=== PATIENT | male | born 1935 | race Caucasian/White ===

== ENCOUNTER 2020-10-19 09:38 | Observation (INO) | payer MEDICARE, OTHER ==
[2020-10-19 10:38] LABS: #Monocytes 0.8 thou/uL (0.11-0.59); #Neutrophils 12.3 thou/uL (1.40-6.50); %Basophils 0.1 % (0.0-1.0); %Eosinophils 0.1 % (0.0-10.0); %Lymphocytes 6.9 % (21.0-51.0); %Monocytes 5.9 % (0.0-10.0); %Neutrophils 86.9 % (42.0-75.0); Hemoglobin 11.7 g/dL (14.0-18.0); Mean Corpuscular HGB CONC 32.4 g/dL (32.0-36.0); Mean Corpuscular Hemoglobin 31.3 pg (27.0-31.0); Mean Corpuscular Volume 96.8 fL (78.0-98.0); Platelet Count 458 thou/uL (130-400); RBC Distribution Width 11.7 % (11.5-14.5); Red Blood Cell (RBC) Count 3.73 mill/uL (4.70-6.10); White Blood Cell (WBC) Count 14.1 thou/uL (4.8-10.8)
[2020-10-19 11:03] LABS: ALT (SGPT) 69 U/L (8-55); AST (SGOT) 43 U/L (5-34); Albumin 2.8 g/dL (3.4-4.8); Alkaline Phosphatase 58 U/L (40-110); Anion Gap 15 mmol/L (10-20); BUN (Urea Nitrogen) 10 mg/dL (8.4-25.7); Bilirubin, Total 0.5 mg/dL (0.2-1.2); Calc. Creatinine Clearance 0 mL/min (70-130); Carbon Dioxide 23 mmol/L (23-31); Chloride 100 mmol/L (98-107); Globulin 3.2 g/dL (2.4-3.5); Glucose 118 mg/dL (83-110); Potassium 4.1 mmol/L (3.5-5.1); Sodium 134 mmol/L (136-145)
[2020-10-19] MEDS ORDERED: Piperacillin/Tazobactam 4.5 GM VIAL ONE (11:29)
[2020-10-19 15:28] LABS: SARS-CoV-2 NAA Rapid Test Not Detected (NotDetected)
[2020-10-19] MEDS ORDERED: Lidocaine 1% w/Epinephrine 1:100K 20 ML VIAL ONE (16:56)
[2020-10-19] MEDS ORDERED: Lidocaine 2% Jelly 5 ML TUBE ONE (16:56)
[2020-10-19] MEDS ORDERED: Bupivacaine PF 0.5% 30 ML VIAL ONE (16:56)
[2020-10-19] MEDS ORDERED: cefOXitin Sodium/Dextrose 2 GM/50 ML BAG ONE (17:32)
[2020-10-19] MEDS ORDERED: Fentanyl 100 MCG/2 ML VIAL ONE ×2 (17:56→19:03)
[2020-10-19] MEDS ORDERED: Dexamethasone 20 MG/5 ML VIAL ONE (18:13)
[2020-10-19] MEDS ORDERED: PROPOFOL 200 MG/20 ML VIAL ONE (18:13)
[2020-10-19] MEDS ORDERED: Lidocaine 1% PF 5 ML VIAL ONE (18:13)
[2020-10-19] MEDS ORDERED: Ondansetron PF 4 MG/2 ML Vial ONE (18:13)
[2020-10-19] MEDS ORDERED: Dextrose 50% Abboject 50 ML SYRINGE SLOW IVP PRN (18:47)
[2020-10-19] MEDS ORDERED: Dextrose 5% in Water 1,000 ML IV PRN (18:47)
[2020-10-19] MEDS ORDERED: Ondansetron PF 4 MG/2 ML Vial IVP PRN (18:47)
[2020-10-19] MEDS: traMADol HCl 50 MG TAB PO PRN (20:24)
[2020-10-19] MEDS: Acetaminophen 325 MG TAB PO SCH (20:25)
[2020-10-19] MEDS: Piperacillin/Tazobactam 3.375 GM in Sodium Chloride 0.9% 100 ML IVPB SCH (20:26)
[2020-10-19 20:37] VITALS: BMI 22.9
[2020-10-20] MEDS: traMADol HCl 50 MG TAB PO SCH ×4 (01:01→17:28)
[2020-10-20] MEDS: Piperacillin/Tazobactam 3.375 GM in Sodium Chloride 0.9% 100 ML IVPB SCH ×2 (01:01→08:50)
[2020-10-20] MEDS: Acetaminophen 325 MG TAB PO SCH ×4 (01:02→20:32)
[2020-10-20 04:34] LABS: Bilirubin Negative (Negative); Blood, Urine Negative (Negative); Clarity Clear (Clear); Glucose, Urine (Dipstick) Normal (Negative); Ketone, Urine Negative (Negative); Leukocyte Negative Leu/uL (Negative); Nitrite Negative (Negative); Protein, Urine (Dipstick) Negative (Neg-Trace); Specific Gravity, Urine 1.015 (1.002-1.036); Urobilinogen Normal mg/dL (Less than 2)
[2020-10-20] MEDS: traMADol HCl 50 MG TAB PO PRN (12:49)
[2020-10-20] MEDS: metroNIDAZOLE 500 MG TAB PO SCH ×2 (14:26→20:32)
[2020-10-20] MEDS: Ciprofloxacin 500 MG TAB PO SCH (20:32)
[2020-10-20] MEDS ORDERED: Lisinopril 20 MG TAB PO SCH (21:00)
[2020-10-21] MEDS: traMADol HCl 50 MG TAB PO SCH ×3 (01:06→12:50)
[2020-10-21] MEDS: Acetaminophen 325 MG TAB PO SCH ×3 (01:06→15:35)
[2020-10-21] MEDS: Ciprofloxacin 500 MG TAB PO SCH (06:08)
[2020-10-21] MEDS: metroNIDAZOLE 500 MG TAB PO SCH ×2 (08:11→15:35)
[2020-10-21 16:13] VITALS: BP 122/59; TEMP 97.6
[2020-10-22] MEDS ORDERED: Saccharomyces boulardii 250 MG CAP PO SCH (09:00)
== END 2020-10-21 16:50 | disposition home health service (06) ==
LOC: ERS 09:38 → INTOOBSV 12:36 → SURG B 12:36
PROVIDERS: ADMIT Surgery; ATTEND Surgery
PROC: 0D9P3ZZ Drainage of Rectum, Percutaneous Approach (ICD-10-PCS; principal; 2020-10-19)
DX: K61.1 Rectal abscess (principal); I10 Essential (primary) hypertension; E78.5 Hyperlipidemia, unspecified; E78.00 Pure hypercholesterolemia, unspecified; Z87.891 Personal history of nicotine dependence; Z79.82 Long term (current) use of aspirin; Z79.899 Other long term (current) drug therapy; Z20.822 Contact with and (suspected) exposure to COVID-19
CPT/HCPCS: 0240U; 46040; 80053; 81003; 85025; 87070; 87075; 87077; 87186; 87205; 96365; 97139 ×2; 99284; 36415; 96366; G0378; J0694; J1100; J2405; J2543; J2704; J3010; J3490; S0020

== ENCOUNTER 2021-04-18 08:36 | Inpatient (IN) | payer MEDICARE, OTHER ==
[2021-04-18] MEDS ORDERED: Lidocaine 1% w/Epinephrine 1:100K 20 ML VIAL ONE ×2 (09:20→13:51)
[2021-04-18 09:52] LABS: #Eosinphils 0.1 thou/uL (0.0-0.7); #Lymphocytes 1.1 thou/uL (1.20-3.40); #Monocytes 0.8 thou/uL (0.11-0.59); #Neutrophils 9.9 thou/uL (1.40-6.50); %Basophils 0.2 % (0.0-1.0); %Eosinophils 1.1 % (0.0-10.0); %Lymphocytes 9.2 % (21.0-51.0); %Monocytes 6.8 % (0.0-10.0); %Neutrophils 82.7 % (42.0-75.0); Hemoglobin 12.8 g/dL (14.0-18.0); Mean Corpuscular HGB CONC 33.2 g/dL (32.0-36.0); Mean Corpuscular Hemoglobin 32.1 pg (27.0-31.0); Mean Corpuscular Volume 96.6 fL (78.0-98.0); Mean Platelet Volume 6.4 fL (7.4-10.4); Platelet Count 259 thou/uL (130-400); Red Blood Cell (RBC) Count 3.98 mill/uL (4.70-6.10); White Blood Cell (WBC) Count 11.9 thou/uL (4.8-10.8)
[2021-04-18] MEDS ORDERED: Ondansetron PF 4 MG/2 ML Vial ONE ×2 (09:57→14:18)
[2021-04-18] MEDS ORDERED: Morphine 4 MG/ML VIAL ONE ×2 (09:57→11:00)
[2021-04-18] MEDS ORDERED: Iopamidol-370 76% 500 ML 1 ML ONE (10:02)
[2021-04-18 10:10] LABS: ALT (SGPT) 24 U/L (8-55); AST (SGOT) 29 U/L (5-34); Albumin 3.4 g/dL (3.4-4.8); Alkaline Phosphatase 61 U/L (40-110); Anion Gap 15 mmol/L (10-20); BUN (Urea Nitrogen) 10 mg/dL (8.4-25.7); Bilirubin, Total 0.5 mg/dL (0.2-1.2); Calc. Creatinine Clearance 0 mL/min (70-130); Calcium 8.6 mg/dL (7.8-10.44); Carbon Dioxide 23 mmol/L (23-31); Chloride 104 mmol/L (98-107); Globulin 2.7 g/dL (2.4-3.5); Glucose 120 mg/dL (83-110); Potassium 3.8 mmol/L (3.5-5.1); Protein, Total 6.1 g/dL (5.8-8.1); Sodium 138 mmol/L (136-145)
[2021-04-18] MEDS ORDERED: Piperacillin/Tazobactam 4.5 GM VIAL ONE (10:57)
[2021-04-18 12:50] LABS: SARS-CoV-2 NAA Rapid Test Not Detected (NotDetected)
[2021-04-18] MEDS ORDERED: Bupivacaine 0.25% HCL 30 ML VIAL ONE (13:51)
[2021-04-18] MEDS ORDERED: Fentanyl 100 MCG/2 ML VIAL ONE (13:54)
[2021-04-18] MEDS ORDERED: PROPOFOL 200 MG/20 ML VIAL ONE (14:18)
[2021-04-18] MEDS ORDERED: Lidocaine 1% PF 5 ML VIAL ONE (14:18)
[2021-04-18] MEDS ORDERED: Promethazine HCl 25 MG/ML VIAL IM PRN (14:42)
[2021-04-18] MEDS ORDERED: Promethazine HCl 25 MG/ML VIAL IVPB PRN (14:42)
[2021-04-18] MEDS ORDERED: Ondansetron HCl/PF 4 MG/2 ML Vial IVP PRN (14:42)
[2021-04-18] MEDS ORDERED: traMADol HCl 50 MG TAB PO PRN ×2 (14:57)
[2021-04-18] MEDS: Piperacillin/Tazobactam 3.375 GM in Sodium Chloride 0.9% 100 ML IVPB SCH ×2 (16:52→23:26)
[2021-04-18] MEDS: Acetaminophen 500 MG TAB PO SCH ×2 (16:52→20:45)
[2021-04-18] MEDS: Lisinopril 20 MG TAB PO SCH (16:52)
[2021-04-18 17:30] VITALS: BMI 22.9
[2021-04-18] MEDS: Ketorolac Tromethamine 30 MG/ML VIAL IVP SCH ×2 (18:06→23:26)
[2021-04-18] MEDS: Atorvastatin Calcium 20 MG TAB PO SCH (20:45)
[2021-04-18] MEDS: Senokot S 8.6-50 MG TAB PO SCH (20:45)
[2021-04-19] MEDS: Acetaminophen 500 MG TAB PO SCH ×4 (02:52→20:59)
[2021-04-19] MEDS: Ketorolac Tromethamine 30 MG/ML VIAL IVP SCH ×2 (05:59→12:34)
[2021-04-19 06:42] LABS: #Eosinphils 0.1 thou/uL (0.0-0.7); #Lymphocytes 1.2 thou/uL (1.20-3.40); #Monocytes 0.5 thou/uL (0.11-0.59); #Neutrophils 7.6 thou/uL (1.40-6.50); %Basophils 0.3 % (0.0-1.0); %Eosinophils 1.4 % (0.0-10.0); %Lymphocytes 12.8 % (21.0-51.0); %Monocytes 5.1 % (0.0-10.0); %Neutrophils 80.4 % (42.0-75.0); Hemoglobin 11.8 g/dL (14.0-18.0); Mean Corpuscular HGB CONC 33.2 g/dL (32.0-36.0); Mean Corpuscular Hemoglobin 32.5 pg (27.0-31.0); Mean Corpuscular Volume 97.9 fL (78.0-98.0); Mean Platelet Volume 6.5 fL (7.4-10.4); Platelet Count 269 thou/uL (130-400); RBC Distribution Width 12.1 % (11.5-14.5); Red Blood Cell (RBC) Count 3.62 mill/uL (4.70-6.10); White Blood Cell (WBC) Count 9.4 thou/uL (4.8-10.8)
[2021-04-19 07:01] LABS: Anion Gap 16 mmol/L (10-20); BUN (Urea Nitrogen) 14 mg/dL (8.4-25.7); Calc. Creatinine Clearance 58 mL/min (70-130); Calcium 8.3 mg/dL (7.8-10.44); Carbon Dioxide 24 mmol/L (23-31); Chloride 105 mmol/L (98-107); Glucose 94 mg/dL (83-110); Magnesium 2.2 mg/dL (1.6-2.6); Phosphorus 2.9 mg/dL (2.3-4.7); Potassium 3.7 mmol/L (3.5-5.1); Sodium 141 mmol/L (136-145)
[2021-04-19] MEDS: Piperacillin/Tazobactam 3.375 GM in Sodium Chloride 0.9% 100 ML IVPB SCH ×3 (07:26→23:11)
[2021-04-19] MEDS ORDERED: Morphine 4 MG/ML VIAL SLOW IVP PRN (08:19)
[2021-04-19] MEDS: Famotidine 20 MG TAB PO SCH ×2 (09:08→20:59)
[2021-04-19] MEDS: Senokot S 8.6-50 MG TAB PO SCH ×2 (09:08→20:59)
[2021-04-19] MEDS: Polyethylene Glycol 3350 17 GM Packet PO SCH (09:08)
[2021-04-19] MEDS: Atorvastatin Calcium 20 MG TAB PO SCH (20:59)
[2021-04-20] MEDS: Acetaminophen 500 MG TAB PO SCH ×4 (04:09→20:28)
[2021-04-20 04:58] LABS: Mean Corpuscular Volume 97.2 fL (78.0-98.0); Mean Platelet Volume 6.5 fL (7.4-10.4); Platelet Count 293 thou/uL (130-400); Red Blood Cell (RBC) Count 3.34 mill/uL (4.70-6.10); White Blood Cell (WBC) Count 5.7 thou/uL (4.8-10.8)
[2021-04-20 05:18] LABS: Band 7 % (5-11); Eosinophils 4 % (0-10); Lymphocytes 26 % (21-51); MDiff Complete? YES; Metamyelocyte 1 % (0-0); Monocytes 3 % (0-10); Neutrophil 59 % (42-75)
[2021-04-20] MEDS: Piperacillin/Tazobactam 3.375 GM in Sodium Chloride 0.9% 100 ML IVPB SCH ×3 (06:44→23:44)
[2021-04-20] MEDS: Polyethylene Glycol 3350 17 GM Packet PO SCH (08:41)
[2021-04-20] MEDS: Famotidine 20 MG TAB PO SCH ×2 (08:41→20:26)
[2021-04-20] MEDS: Senokot S 8.6-50 MG TAB PO SCH ×2 (08:41→20:26)
[2021-04-20] MEDS: Lisinopril 20 MG TAB PO SCH (14:54)
[2021-04-20] MEDS: Atorvastatin Calcium 20 MG TAB PO SCH (20:26)
[2021-04-20] MEDS ORDERED: Enoxaparin Sodium 40 MG/0.4 ML SYRINGE SC SCH (21:00)
[2021-04-21] MEDS: Acetaminophen 500 MG TAB PO SCH ×3 (03:07→15:14)
[2021-04-21] MEDS: Piperacillin/Tazobactam 3.375 GM in Sodium Chloride 0.9% 100 ML IVPB SCH (05:53)
[2021-04-21] MEDS: Famotidine 20 MG TAB PO SCH (09:29)
[2021-04-21] MEDS: Polyethylene Glycol 3350 17 GM Packet PO SCH (09:30)
[2021-04-21] MEDS: Senokot S 8.6-50 MG TAB PO SCH (09:30)
[2021-04-21] MEDS ORDERED: metroNIDAZOLE 500 MG TAB PO SCH (15:00)
[2021-04-21 16:21] VITALS: BP 163/84; TEMP 97.8
[2021-04-21] MEDS ORDERED: Sulfameth/Trimethoprim DS 800-160mg TAB PO SCH (21:00)
== END 2021-04-21 18:48 | disposition home health service (06) | DRG 395 ==
LOC: ERS 08:36 → SURG A 11:11 → OBSVTOIN 04-19 17:57
PROVIDERS: ADMIT Surgery; ATTEND Surgery
PROC: 0J990ZZ Drainage of Buttock Subcutaneous Tissue and Fascia, Open Approach (ICD-10-PCS; principal; 2021-04-18)
DX: K61.1 Rectal abscess (principal); Z20.822 Contact with and (suspected) exposure to COVID-19; I10 Essential (primary) hypertension; E78.5 Hyperlipidemia, unspecified; E78.00 Pure hypercholesterolemia, unspecified; Z28.21 Immunization not carried out because of patient refusal; Z87.891 Personal history of nicotine dependence; Z79.899 Other long term (current) drug therapy; Z79.82 Long term (current) use of aspirin
CPT/HCPCS: 36415; 71045; 72193; 80048; 80053; 83605; 83735; 83880; 84100; 84484; 85007; 85025; 85027; 87040; 87070; 87076; 87077; 87149; 87186; 87205; 93005; 93010; 94640; 94760; 96374; 96375; 96376; G0378; J1650; J1885; J2270; J2405; J2543; J2704; J3010; J3490; J7620; Q9967; S0020; U0002

== ENCOUNTER 2023-08-03 08:50 | Observation (INO) | payer MEDICARE, OTHER ==
[2023-08-03] MEDS ORDERED: Cefepime 2 GM VIAL ONE (09:57)
[2023-08-03] MEDS ORDERED: Sodium Chloride 0.9% 100 ML ONE (09:58)
[2023-08-03 10:14] LABS: #Monocytes 0.9 thou/uL (0.11-0.59); #Neutrophils 8.9 thou/uL (1.40-6.50); %Basophils 0.3 % (0.0-1.0); %Eosinophils 0.1 % (0.0-10.0); %Lymphocytes 10.2 % (21.0-51.0); %Monocytes 8.1 % (0.0-10.0); Hemoglobin 12.6 g/dL (14.0-18.0); Mean Corpuscular HGB CONC 33.2 g/dL (32.0-36.0); Mean Corpuscular Hemoglobin 31.8 pg (27.0-31.0); Mean Platelet Volume 9.2 fL (7.4-10.4); Platelet Count 197 10x3/uL (130-400); RBC Distribution Width 13.4 % (11.5-14.5); Red Blood Cell (RBC) Count 3.96 mill/uL (4.70-6.10)
[2023-08-03 10:49] LABS: ALT (SGPT) 11 U/L (8-55); AST (SGOT) 21 U/L (5-34); Albumin 3.8 g/dL (3.4-4.8); Alkaline Phosphatase 46 U/L (40-110); Anion Gap 15 mmol/L (10-20); BUN (Urea Nitrogen) 10 mg/dL (8.4-25.7); Bilirubin, Total 1.2 mg/dL (0.2-1.2); Calc. Creatinine Clearance 0 mL/min (70-130); Calcium 8.7 mg/dL (7.8-10.44); Carbon Dioxide 22 mmol/L (23-31); Chloride 104 mmol/L (98-107); Estimated GFR 64; Globulin 3.2 g/dL (2.4-3.5); Glucose 102 mg/dL (83-110); Potassium 3.8 mmol/L (3.5-5.1); Sodium 137 mmol/L (136-145)
[2023-08-03] MEDS ORDERED: Vancomycin 1 GM/200 ML (FROZEN) BAG ONE (11:28)
[2023-08-03] MEDS ORDERED: Acetaminophen 500 MG TAB ONE (11:46)
[2023-08-03] MEDS ORDERED: Iopamidol-370 76% 500 ML MDV (1 ML CHARGE) ONE (11:52)
[2023-08-03] MEDS ORDERED: Ipratropium/Albuterol 3 ML NEB NEB PRN (12:18)
[2023-08-03] MEDS ORDERED: Ondansetron ODT 4 MG TAB PO PRN (12:18)
[2023-08-03] MEDS ORDERED: Ondansetron PF 4 MG/2 ML Vial IVP PRN (12:18)
[2023-08-03] MEDS ORDERED: Ondansetron PF 4 MG/2 ML Vial ONE (13:16)
[2023-08-03] MEDS ORDERED: fentaNYL PF 100 MCG/2 ML SYRINGE ONE (13:16)
[2023-08-03] MEDS ORDERED: PROPOFOL 40 ML ONE (13:16)
[2023-08-03] MEDS ORDERED: Lidocaine 1% PF 5 ML VIAL ONE (13:16)
[2023-08-03] MEDS ORDERED: Dexamethasone 4 mg/ml Vial ONE (13:16)
[2023-08-03] MEDS ORDERED: Esmolol 100 MG/10 ML VIAL ONE (13:56)
[2023-08-03] MEDS ORDERED: Rocuronium Bromide 10 MG/ML (10ML VIAL) ONE (13:56)
[2023-08-03 14:32] VITALS: BMI 23.1
[2023-08-03] MEDS: Sodium Chloride 0.9% 1,000 ML IV SCH (15:09)
[2023-08-03] MEDS: Piperacillin/Tazobactam 3.375 GM in Sodium Chloride 0.9% 100 ML IVPB SCH ×2 (15:09→18:03)
[2023-08-03] MEDS ORDERED: EPINEPHrine 1 MG/ML VIAL ONE (15:29)
[2023-08-03] MEDS ORDERED: Bupivacaine PF 0.5% 30 ML VIAL ONE (15:29)
[2023-08-03] MEDS ORDERED: PHENYLEPHRINE-NS 100 MCG/ML 10 ML SYRINGE ONE (16:22)
[2023-08-03] MEDS: Acetaminophen 500 MG TAB PO SCH (18:02)
[2023-08-03] MEDS: Morphine 2 MG/ML VIAL SLOW IVP PRN (20:03)
[2023-08-04 06:27] LABS: #Monocytes 0.5 thou/uL (0.11-0.59); #Neutrophils 6.5 thou/uL (1.40-6.50); %Basophils 0.2 % (0.0-1.0); %Eosinophils 0.4 % (0.0-10.0); %Lymphocytes 14.7 % (21.0-51.0); %Monocytes 6.3 % (0.0-10.0); %Neutrophils 78.2 % (42.0-75.0); Hematocrit 34.3 % (42.0-52.0); Mean Corpuscular HGB CONC 32.1 g/dL (32.0-36.0); Mean Corpuscular Hemoglobin 31.1 pg (27.0-31.0); Mean Corpuscular Volume 96.9 fl (78.0-98.0); Mean Platelet Volume 9.4 fL (7.4-10.4); Platelet Count 170 10x3/uL (130-400); RBC Distribution Width 13.6 % (11.5-14.5); Red Blood Cell (RBC) Count 3.54 mill/uL (4.70-6.10); White Blood Cell (WBC) Count 8.3 10x3/uL (4.8-10.8)
[2023-08-04 06:47] LABS: Anion Gap 8 mmol/L (10-20); BUN (Urea Nitrogen) 10 mg/dL (8.4-25.7); Calc. Creatinine Clearance 66 mL/min (70-130); Calcium 8.2 mg/dL (7.8-10.44); Carbon Dioxide 25 mmol/L (23-31); Chloride 110 mmol/L (98-107); Estimated GFR 78; Glucose 122 mg/dL (83-110); Potassium 3.9 mmol/L (3.5-5.1); Sodium 139 mmol/L (136-145)
[2023-08-04 07:43] VITALS: TEMP 97.5
[2023-08-04 16:56] VITALS: BP 151/75
== END 2023-08-04 17:30 | disposition home health service (06) ==
LOC: ERS 08:50 → T4-B 12:20
PROVIDERS: ADMIT Surgery; ATTEND Surgery
PROC: 0H98XZZ Drainage of Buttock Skin, External Approach (ICD-10-PCS; principal; 2023-08-03)
DX: L02.31 Cutaneous abscess of buttock (principal); I10 Essential (primary) hypertension; Z79.82 Long term (current) use of aspirin; Z79.899 Other long term (current) drug therapy
CPT/HCPCS: 10060; 74177; 80048; 80053; 83605; 85025 ×2; 87040; 87149 ×2; 96365; 96366; 96367; 96368; 96375; 96376 ×2; 97139; 99284; G0378 ×3; J3370; 36415; 87076; J0171; J0665; J0692; J1100; J2272; J2405; J2543; J2704; J3490; J7050; Q9967